=== PATIENT | male | born 1965 | race Caucasian/White ===

== ENCOUNTER → 2020-10-17 | Outpatient (CLI) | payer BC ==
--- NOTE | 2020-10-18 04:49 | RAD ---
2 view right knee and two-view right hip and AP view pelvis dated 10/17/2020. No comparison available CLINICAL INDICATION: Pain. FINDINGS: AP view pelvis shows normal bony alignment. No displaced fracture. Pelvic ring is intact. No periosti tis or bone destruction. Two-view right hip show moderate degenerative change at the right hip joint with mild disc space narr owing. Femoral neck is intact. No evidence of fracture. Two-view right knee show normal bony alignment. No displaced fracture. No acute osseous or articular abnormality. No joint effusion or loose body. IMPRESSION: No acute findings. Electronically signed by: Mau Rich MD (10/18/2020 4:47 AM) SAL[facility]
== END ==
LOC: RAD 08:10
PROVIDERS: ATTEND Physician Assistant Medical
DX: M25.551 Pain in right hip (principal); M25.561 Pain in right knee
CPT/HCPCS: 73502; 73560

== ENCOUNTER 2021-08-26 16:43 | Emergency (ER) | payer BC ==
[~2021-08-26] VITALS: Ht 177.8 cm; Wt 95.4 kg
[2021-08-26 17:11] VITALS: BP 150/93
[2021-08-26] MEDS ORDERED: DIPHTH,PERTUSS(ACELL),TET TOX 0.5 ML DISP.SYRIN. VAX IM ONE (17:30)
[2021-08-26] MEDS ORDERED: AMOX1TAB11 PO (17:35)
--- NOTE | 2021-08-26 17:35 | PHYS DOC ---
Past History Past Surgical History: Hip Replacement (LEENA VO APRN) Alcohol Use: Occasionally (LEENA VO APRN) General Adult EDM: Chief Complaint: ANIMAL BITE HPI: HPI: Patient is a 56-year-old male who presents to the emergency department for dog bite that occurred at 1600 today. Patient reports that he was bit in the face by his dog. Patient does have an abrasion below his right eye and 2 small abrasions to his right eyebrow. Patient denies any blurred vision or loss of vision. He reports that the dog's vaccines are up-to-date. He is unsure of his last tetanus shot. He reports throbbing pain to the site of the dog bite. He denies any fevers. (LEENA VO APRN) Review of Systems: Review of Systems: Constitutional: See HPI Eyes: See HPI HENT: See HPI Integument: See HPI (LEENA VO APRN) Current Medications: Current Meds: Current Medications Medications (Trade) Dose Ordered Sig/Scott Start Time Stop Time Status Last Admin Dose Admin Diphtheria/ Tetanus/Acell Pertussis (Boostrix) 0.5 ml ONCE ONCE 08/26/21 17:30 08/26/21 17:31 (LEENA VO APRN) Allergies: Allergies: Allergies Coded Allergies Type Severity Reaction Last Updated Verified No Known Drug Allergies 08/26/21 No (LEENA VO APRN) Physical Exam: PE: Constitutional: Well developed, well nourished, no acute distress, non-toxic appearance. [] HENT: Normocephalic, 2, 3mm abrasions noted to right eye brow, small abrasion approx 3mm to right upper lip, 1.5cm abrasion noted below right eye that is well approximated without any bleeding, ecchymosis and swelling noted below right eye, no crepitis palpated to orbits, pain with palpation of right orbit proximal to abrasion, no palpable foreign body, bilateral external ears normal, oropharynx moist, no oral exudates, nose normal. [] Eyes: PERRL, EOMI, conjunctiva normal, no discharge. [] Neck: Normal range of motion, no stridor Cardiovascular:normal peripheral perfusion Lungs & Thorax: normal wob, no tachypnea Abdomen: soft and flat Skin: Warm, dry, no erythema, no rash, wounds discussed above have no surrounding redness/warmth/drainage [] Back: Normal rom Extremities: No tenderness, no cyanosis, no clubbing, ROM intact, no edema. [] Neurologic: Alert and oriented X 3, normal motor function, normal sensory function, no focal deficits noted. [] Psychologic: Affect normal, judgement normal, mood normal. [] (LEENA VO APRN) Current Patient Data: Vital Signs: Vital Signs Date Time Temp Pulse Resp B/P (MAP) Pulse Ox O2 Delivery O2 Flow Rate FiO2 08/26/21 17:11 98.3 69 16 150/93 (112) 97 Room Air (LEENA VO APRN) EKG: EKG: [] (LEENA VO APRN) Radiology/Procedures: Radiology/Procedures: [] (LEENA VO APRN) Heart Score: C/O Chest Pain: N/A Risk Factors: Risk Factors: DM, Current or recent (<one month) smoker, HTN, HLP, family history of CAD, obesity. Risk Scores: Score 0 - 3: 2.5% MACE over next 6 weeks - Discharge Home Score 4 - 6: 20.3% MACE over next 6 weeks - Admit for Clinical Observation Score 7 - 10: 72.7% MACE over next 6 weeks - Early Invasive Strategies (LEENA VO APRN) Course & Med Decision Making: Course & Med Decision Making Pertinent Labs and Imaging studies reviewed. (See chart for details) [] Patient presents to the emergency department with complaints of a dog bite. Patient has abrasions below his right eye with ecchymosis and swelling as well as small abrasions to his right eyebrow and right upper lip. I offered patient a maxillofacial image to rule out any fracture and he refused. Patient is unsure of his last tetanus shot and this was updated in the emergency department. Patient reports that the dog's vaccines are up-to-date as is his own dog. Patient's pain was treated in the emergency department. Patient will be discharged home with an antibiotic, advised to take Tylenol and ibuprofen for pain, advised to monitor for signs of infection. Advised to apply ice. I discussed with patient all findings and diagnostic testing as well as the need to follow-up with PCP for further evaluation and treatment or return to the ER if any new or worsening symptoms. Strict return precautions were also discussed at length. Patient voiced understanding and agreement with the plan. Patient is hemodynamically stable at the time of disposition. (LEENA VO APRN) Harryon Disclaimer: Ami Disclaimer: This electronic medical record was generated, in whole or in part, using a voice recognition dictation system. (LEENA VO APRN) Attending Co-Sign The patient was seen and interviewed as well as examined at the bedside. The chart was reviewed. The case was discussed. Agree with the plan of care. (DEN CYR DO) Departure Departure: Impression: Primary Impression: Dog bite Qualified Codes: W54.0XXA - Bitten by dog, initial encounter Disposition: HOME / SELF CARE / HOMELESS Condition: GOOD Referrals: RADHA POTTER (PCP) Patient Instructions: Animal Bite Additional Instructions: You were seen in the emergency department today for a dog bite to your face. Your tetanus was updated in the emergency department and you were given pain medication. At home, take Tylenol and ibuprofen and apply ice. You are being discharged home with a antibiotic. Please start and finish this completely. Monitor for any signs of infection which include redness, warmth, swelling or drainage. Follow-up with your primary care provider tomorrow regarding your ER visit. Return to the emergency department if you develop worsening of your pain, vision changes or loss of vision, any signs of infection, intractable nausea or vomiting, confusion, severe headache or any new or worsening concerns. Scripts Amoxicillin/Potassium Clav (AMOX TR-K CLV 875-125 MG TAB) 1 Each Tablet 1 TAB PO BID for infection for 7 Days, #14 TAB 0 Refills Prov: LEENA VO APRN 08/26/21 LEENA VO APRN Aug 26, 2021 17:35 DEN CYR DO Aug 27, 2021 11:24
[2021-08-26] MEDS ORDERED: HYDROcodone/APAP 5/325MG 1 TAB TABLET PO ONE (17:45)
== END 2021-08-26 17:47 | disposition home or self-care (01) ==
LOC: ER 16:43
DX: S00.211A Abrasion of right eyelid and periocular area, initial encounter (principal); S00.511A Abrasion of lip, initial encounter; W54.0XXA Bitten by dog, initial encounter; Y93.89 Activity, other specified; Y92.89 Other specified places as the place of occurrence of the external cause; Y99.8 Other external cause status
CPT/HCPCS: 90471; 90715; 99283